=== PATIENT | female | born 1980 | race American Indian/Alaskan Native ===

== ENCOUNTER 2018-10-20 11:00 | Outpatient (CLI) | payer BC | END 2018-10-20 11:01 | disposition home or self-care (01) | LOC: SLR 11:00 | PROVIDERS: ATTEND Otolaryngology | DX: G47.33 Obstructive sleep apnea (adult) (pediatric) (principal); R40.0 Somnolence; R06.83 Snoring | CPT/HCPCS: 95810 ==

== ENCOUNTER 2018-10-22 11:00 | Outpatient (CLI) | payer BC | END 2018-10-22 11:01 | disposition home or self-care (01) | LOC: SLR 11:00 | PROVIDERS: ATTEND Otolaryngology | DX: G47.33 Obstructive sleep apnea (adult) (pediatric) (principal); R06.83 Snoring; R40.0 Somnolence | CPT/HCPCS: 95811 ==

== ENCOUNTER 2019-02-13 01:49 | Emergency (ER) | payer BC ==
[2019-02-13 02:18] VITALS: BP 162/108
--- NOTE | 2019-02-13 04:10 | Emergency Department Report ---
Minor Respiratory - HPI Chief Complaint: Upper Respiratory Infection Stated Complaint: CONGESTION HEADACHE JAW PAIN Time Seen by Provider: 02/13/19 04:05 Duration: 5 Days Pain Location: Facial Minor Respiratory: Yes Rhinorrhea, Yes Sore Throat, Yes Able to Tolerate Fluids, Yes Cough, No Sick Contacts, No Chest Pain, No Shortness of Breath Other History: 39 year-old -[place] female presents to the emergency room for five-day history of nasal congestion, headache, sore throat, cough runny nose and sneezing. Denies any fever chills no nausea no vomiting. Pat yissel states she tried [id number] Mucinex and ibuprofen. ED Review of Systems ROS: Stated complaint: CONGESTION HEADACHE JAW PAIN Other details as noted in HPI Comment: All other systems reviewed and negative Constitutional: denies: chills, fever Eyes: denies: eye pain, eye discharge, vision change ENT: throat pain, congestion Respiratory: cough Cardiovascular: denies: chest pain, palpitations Endocrine: no symptoms reported Gastrointestinal: denies: abdominal pain, nausea, diarrhea Genitourinary: denies: urgency, dysuria, discharge Musculoskeletal: denies: back pain, joint swelling, arthralgia Skin: denies: rash, lesions Neurological: headache. denies: weakness, paresthesias Psychiatric: denies: anxiety, depression Hematological/Lymphatic: denies: easy bleeding, easy bruising ED Past Medical Hx - Past Medical History Previous Medical History?: Yes Hx Hypertension: Yes - Surgical History Past Surgical History?: Yes Additional Surgical History: Rotater cuff and left thumb - Social History Smoking Status: Current Every Day Smoker Substance Use Type: Prescribed - Medications Home Medications: Home Medications Medication Instructions Recorded Confirmed Last Taken Type Benzonatate [Tessalon Perles] 100 mg PO Q8HR #15 capsule 02/13/19 Unknown Rx Cetirizine HCl [Zyrtec 10mg tab] 10 mg PO QDAY #15 tablet 02/13/19 Unknown Rx Fluticasone [Flonase] 1 spray NS QDAY #1 bottle 02/13/19 Unknown Rx Ibuprofen [Motrin 800 MG tab] 800 mg PO Q8HR PRN #30 tablet 02/13/19 Unknown Rx Minor Respiratory Exam - Exam General: Vital signs noted. No distress. Alert and acting appropriately. HEENT: Yes Moist Mucous Membranes, No Pharyngeal Erythema, No Pharyngeal Exudates, No Rhinorrhea, No Conjuctival Injection, No Frontal Tenderness, No Maxillary Tenderness Ear: Neither TM Bulge, Neither TM Erythema, Neither EAC Pain, Neither EAC Discharge Neck: Yes Supple, No Adenopathy Lungs: Yes Good Air Exchange, No Wheezes, No Ronchi, No Stridor, No Cough, No Labored Respirations, No Retractions, No Use of Accessory Muscles, No Other Abnormal Lung Sounds Heart: Yes Regular, No Murmur Skin: No Rash, No Edema Neurologic: Alert and oriented, no deficits. Musculoskeletal: Unremarkable. ED Course Vital Signs 02/13/19 02:09 Temperature 98.1 F Pulse Rate 97 H Respiratory 18 Rate Blood Pressure 162/108 [Right] O2 Sat by Pulse 98 Oximetry ED Medical Decision Making - Medical Decision Making 39-year-old -[place] female comes in complaining and allergy like symptoms. Patient be placed on Zyrtec's Tessalon Perles Flonase. Patient instructed to follow-up with her primary care provider if symptoms persist or gets worse. Critical care attestation.: If time is entered above; I have spent that time in minutes in the direct care of this critically ill patient, excluding procedure time. ED Disposition Clinical Impression: Allergic rhinitis Qualifiers: Allergic rhinitis trigger: unspecified Allergic rhinitis seasonality: unspecified Qualified Code(s): J30.9 - Allergic rhinitis, unspecified Disposition: - TO HOME OR SELFCARE Is pt being admited?: No Does the pt Need Aspirin: No Condition: Stable Instructions: Allergic Rhinitis (ED) Additional Instructions: Please take medications as prescribed. It is very important to take her blood pressure medicine as her blood pressure was elevated today. Follow up with her primary care provider if his symptoms persist or gets worse. Prescriptions: Fluticasone [Flonase] 1 spray NS QDAY #1 bottle Ibuprofen [Motrin 800 MG tab] 800 mg PO Q8HR PRN #30 tablet PRN Reason: Pain , Severe (7-10) Benzonatate [Tessalon Perles] 100 mg PO Q8HR #15 capsule Cetirizine HCl [Zyrtec 10mg tab] 10 mg PO QDAY #15 tablet Referrals: MIKE RODRIGUEZ MD [Primary Care Provider] - 3-5 Days Forms: Work/School Release Form(ED)
== END 2019-02-13 04:26 | disposition home or self-care (01) ==
LOC: ED 01:49
DX: R09.81 Nasal congestion (principal); J30.9 Allergic rhinitis, unspecified; I10 Essential (primary) hypertension; F17.200 Nicotine dependence, unspecified, uncomplicated; Z98.890 Other specified postprocedural states
CPT/HCPCS: 99281